=== PATIENT | male | born 1975 ===

== ENCOUNTER 2021-07-04 00:59 | Emergency (ER) | payer OTHER ==
[2021-07-04] MEDS ORDERED: Albuterol/Ipratropium 3.0-0.5 MG/3 ML Neb Soln NEB ONE (01:08)
== END 2021-07-04 01:54 | disposition home or self-care (01) ==
LOC: MW.ED 00:59
DX: J40 Bronchitis, not specified as acute or chronic (principal)
CPT/HCPCS: 71045; 71045-26; 93005; 99283-25; J7620-GY